=== PATIENT | male | born 1975 | race Caucasian/White ===

== ENCOUNTER 2017-02-08 09:17 | Emergency (ER) | payer OTHER ==
[~2017-02-08 09:17] MED LIST: ALLEGRA ALLERGY60 M1 PO; ANTIVERT 25MG #1 PAC PO; BYSTOLIC 5MG5 MG PO; CYCLOBENZAPRINE10 M1 PO; FINASTERIDE5 M1 PO; MIRAPEX 0.25M0.25 MG PO; MIRAPEX0.125 M1 PO; MOBIC15 M1 PO; NAPROXEN500 M2 PO; PERCOCET 325 MG1 TA2 PO; TRAMADOL HCL50 M1 PO; ZYRTEC ALLERGY10 MG PO
[2017-02-08 09:24] VITALS: BP 127/81
--- NOTE | 2017-02-08 09:38 | ED NECK/BACK PAIN COMPLAINT ---
History of Present Illness General Chief Complaint: Low Back Pain/Injury Stated Complaint: LBP/MID BACK PAIN Source: patient, old records Exam Limitations: no limitations Vital Signs & Intake/Output Vital Signs & Intake/Output Vital Signs Date Time Temp Pulse Resp B/P B/P Pulse O2 O2 Flow FiO2 Mean Ox Delivery Rate 02/08 0924 96.4 44 16 127/81 98 Room Air Allergies Coded Allergies: cat pelt standardized allergenic ex (UNKNOWN 05/05/16) sulfamethoxazole (From BACTRIM) (HIVES 05/05/16) trimethoprim (From BACTRIM) (HIVES 05/05/16) Reconcile Medications Celecoxib 200 MG CAPSULE 1 CAP PO DAILY PRN PAIN (Reported) Fexofenadine HCl ([facility] Allergy) 60 MG TABLET 1 TAB PO QPM ALLERGIES ( Reported) Finasteride 5 MG TABLET 1 TAB PO DAILY CHOLESTEROL (Reported) Nebivolol HCl (Bystolic) 10 MG TABLET 1 TAB PO QPM HEART (Reported) Pramipexole Di-HCl (Mirapex) 0.125 MG TABLET 1 TAB PO QPM RESTLESS LEG SYNDROME (Reported) Triage Note: PT C/O PAIN TO MIDDLE OF BACK FOR THE PAST FEW DAYS. DENIES KNOWN INJURY Triage Nurses Notes Reviewed? yes HPI: Patient presents with a sharp stabbing pain around his right shoulder blade for the past few days. Patient states that he has chronic pain in that area put a few days ago gradually increased. Patient did see his chiropractor yesterday and has appointment to see him again later today however as he was putting lotion on this morning the pain escalated 10 out of 10 and he felt like he could not go in to work so he comes to the emergency department. The pain is constant and there are no aggravating or mitigating factors, however it does get worse when he was putting his shirt on this morning. There is no radiation of the pain. The pain is sharp and stabbing in nature. Patient denies any shortness of breath. There is no hemoptysis. Similar symptoms in the past 3 years ago. Patient states at that point he was put on muscle relaxers which just made him sleep for 3 days however they did help the pain. Past History Travel History Traveled to [place] past 21 day No Medical History Any Pertinent Medical History? 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 No Review of Systems Review of Systems Constitutional: Reports: no symptoms. Eyes: Reports: no symptoms. Ears, Nose, Throat, Mouth: Reports: no symptoms. Respiratory: Reports: no symptoms. Cardiovascular: Reports: no symptoms. Gastrointestinal/Abdominal: Reports: no symptoms. Musculoskeletal: Reports: see HPI, back pain. Skin: Reports: no symptoms. Neurological/Psychological: Reports: no symptoms. All Other Systems: Reviewed and Negative Physical Exam Physical Exam General Appearance: well developed/nourished, alert, awake, mild distress Head: atraumatic, normal appearance Eyes: Bilateral: PERRL, EOMI. Ears, Nose, Throat, Mouth: hearing grossly normal, moist mucous membrane Neck: normal inspection, supple, full range of motion Respiratory: normal breath sounds, chest non-tender, no respiratory distress, lungs clear Cardiovascular: regular rate/rhythm, normal peripheral pulses Gastrointestinal: soft, non-tender Back: normal inspection Extremities: normal range of motion Neurologic/Psych: awake, alert, oriented x 3, normal mood/affect Skin: intact, normal color, warm/dry Progress Differential Diagnosis: herniated disc, myofascial strain, T/L spine injury Plan of Care: Orders Procedure Date/time Status CT THOR SPINE WO IV CONTRAST 02/08 935 Active Diagnostic Imaging: Viewed by Me: CT Scan. Discussed w/RAD: CT Scan. Radiology Impression: PATIENT: STEFFANIE TODD PRESENT AGE: 42 PATIENT ACCOUNT NO: [id number] : 73 LOCATION: [facility] ORDERING PHYSICIAN: HIRO BROWN MD SERVICE DATE: 02/08/17 EXAM TYPE: CAT - CT THOR SPINE WO IV CONTRAST EXAMINATION: CT THORACIC SPINE WITHOUT CONTRAST CLINICAL INFORMATION: Severe pain. Assess for herniated disc. COMPARISON: None. TECHNIQUE: A noncontrast axial CT scan of the thoracic spine was obtained. Coronal and sagittal reformatted images were generated at the acquisition workstation. DLP: 1568.63 mGy-cm FINDINGS: There is a very mild dextroscoliosis. There is narrowing of intervertebral disc height at C6-C7 which is partially visualized. There is also narrowing of intervertebral disc height at multiple levels mid lower thoracic spine with predominantly right-sided osteophytes which are largest at T7-T8 and T8-T9. Vertebral body heights are maintained and there are no compression fractures. Bone mineralization appears normal. There is an incidental azygous fissure. There is a 4 mm nodule in the left upper lobe posteromedially (image 165/599) The visualized superior retroperitoneal structures are unremarkable. There are a few small mediastinal lymph nodes which are nonenlarged. There is a mildly prominent left superior intercostal vein. SPINAL LEVELS: T5-T6: There is a small posterior disc osteophyte to the left of midline. There is no central stenosis or spinal cord compression and the neural foramina are patent. T6-T7: There are small posterior disc osteophyte complexes to the left and right of midline. There is no central stenosis or spinal cord compression. The neural foramina are patent. T8-T9: There is a small left paracentral disc osteophyte complex. There is no central stenosis or spinal cord compression. The neural foramina are patent. T9-T10: There is a small left paracentral disc osteophyte complex. There is no central stenosis or spinal cord compression. The neural foramina are patent. IMPRESSION: 1. There are no acute fractures or subluxations. 2. There are small multilevel spondylitic changes as described above; there is no spinal cord compression or central stenosis. The neural foramina are patent. 3. There is a 4 mm nodule in the left upper lobe. Recommend CT scan of the chest in 12 months for follow-up. DICTATED BY: SRUTHI MYLES MD DATE/TIME DICTATED:02/08/171023 RAIL SIGNAL DESIGNER :VAL DATE/TIME TRANSCRIBED:02/08/171023 CONFIDENTIAL, DO NOT COPY WITHOUT APPROPRIATE AUTHORIZATION. <Electronically signed in Other Vendor System> SIGNED BY: SRUTHI MYLES MD 02/08/17 1050 Comments: WELLS SCORE [address] RESULTS DISCUSSED WITH PT AND QUESTIONS HAVE BEEN ANSWERED. PAIN DECREASED AFTER TORADOL Departure Departure Disposition: HOME OR SELF CARE Condition: Stable Clinical Impression Primary Impression: Muscle spasm of back Referrals: DON COATS,JACQUIE Mejia (PCP/Family) Additional Instructions: USE MOIST HEAT TAKE MEDROL PRESCRIBED TAKE FLEXERIL NEEDED RETURN FOR ANY CONCERNS Departure Forms: Customer Survey General Discharge Information Prescriptions: Current Visit Scripts Methylprednisolone. (Medrol) 1 DP PO AD #1 DP 6 on day 1 then reduce by one tablet daily until gone Cyclobenzaprine HCl 1 TAB PO TIDPRN PRN MUSCLE SPASM #30 TAB
--- NOTE | 2017-02-08 10:50 | CT SCAN REPORT ---
EXAMINATION: CT THORACIC SPINE WITHOUT CONTRAST CLINICAL INFORMATION: Severe pain. Assess for herniated disc. COMPARISON: None. TECHNIQUE: A noncontrast axial CT scan of the thoracic spine was obtained. Coronal and sagittal reformatted images were generated at the acquisition workstation. DLP: 1568.63 mGy-cm FINDINGS: There is a very mild dextroscoliosis. There is narrowing of intervertebral disc height at C6-C7 which is partially visualized. There is also narrowing of intervertebral disc height at multiple levels mid lower thoracic spine with predominantly right-sided osteophytes which are largest at T7-T8 and T8-T9. Vertebral body heights are maintained and there are no compression fractures. Bone mineralization appears normal. There is an incidental azygous fissure. There is a 4 mm nodule in the left upper lobe posteromedially (image 165/599) The visualized superior retroperitoneal structures are unremarkable. There are a few small mediastinal lymph nodes which are nonenlarged. There is a mildly prominent left superior intercostal vein. SPINAL LEVELS: T5-T6: There is a small posterior disc osteophyte to the left of midline. There is no central stenosis or spinal cord compression and the neural foramina are patent. T6-T7: There are small posterior disc osteophyte complexes to the left and right of midline. There is no central stenosis or spinal cord compression. The neural foramina are patent. T8-T9: There is a small left paracentral disc osteophyte complex. There is no central stenosis or spinal cord compression. The neural foramina are patent. T9-T10: There is a small left paracentral disc osteophyte complex. There is no central stenosis or spinal cord compression. The neural foramina are patent. IMPRESSION: 1. There are no acute fractures or subluxations. 2. There are small multilevel spondylitic changes as described above; there is no spinal cord compression or central stenosis. The neural foramina are patent. 3. There is a 4 mm nodule in the left upper lobe. Recommend CT scan of the chest in 12 months for follow-up.
[2017-02-08] MEDS ORDERED: BYSTOLIC10 M1 PO (10:52)
[2017-02-08] MEDS ORDERED: CELECOXIB200 M1 PO (10:52)
[2017-02-08] MEDS ORDERED: MEDROL4 M2 PO (11:10)
[2017-02-08] MEDS ORDERED: CYCLOBENZAPRINE5 M2 PO (11:10)
== END 2017-02-08 11:15 ==
LOC: ERH 09:17
DX: M62.830 Muscle spasm of back (principal)
CPT/HCPCS: 96372; J1885